=== PATIENT | male | born 1990 | race Caucasian/White ===

== ENCOUNTER 2021-10-20 10:26 | Emergency (ER) | payer MEDICAID ==
[~2021-10-20] VITALS: Ht 175.3 cm; Wt 86.7 kg
[2021-10-20 10:32] VITALS: BP 125/43
--- NOTE | 2021-10-20 10:37 | NUR ---
Ade luna in [facility] - 10/20/21 at 1040 by [email or web address] PT AMB TO BED 6.
--- NOTE | 2021-10-20 10:53 | NUR ---
PT AMBULATED TO BED 06.
[2021-10-20] MEDS ORDERED: LIDOCAINE MPF 1% 10 MG/ML VIAL INJ ONE (12:05)
--- NOTE | 2021-10-20 12:15 | NUR ---
PT STEPPED OUT "GOING TO MY CAR , WILL BE BACK"
--- NOTE | 2021-10-20 12:56 | NUR ---
PT BACK FROM EATTING IN HIS CAR.
--- NOTE | 2021-10-20 13:03 | NUR ---
GEOFF SANCHES AT BEDSIDE EVALUATING PATIENT
[2021-10-20] MEDS ORDERED: LIDOCAINE MPF 1% 5 ML ONE (13:14)
[2021-10-20] MEDS ORDERED: NAPR-54 PO (13:25)
[2021-10-20] MEDS ORDERED: BACI1PAC6 TP (13:25)
[2021-10-20] MEDS ORDERED: BACITRACIN OINT 500 UNITS/GM PKT TP ONE (13:25)
--- NOTE | 2021-10-20 14:38 | NUR ---
Patient discharged with v/s stable. Written and verbal after care instructions FOR [employer] given and explained. Patient alert, oriented and verbalized understanding of instructions. Ambulatory with steady gait. All questions addressed prior to discharge. ID band removed. Patient advised to follow up with PMD. Rx of BACITRACIN ZINC AND NAPROXEN given. Opportunity to ask questions provided and answered.
--- NOTE | 2021-10-20 14:44 | NUR ---
The patient's care was reviewed and supervised by ED Agency Nurse 7, RN, RN.
== END 2021-10-20 14:38 | disposition home or self-care (01) ==
LOC: MED 10:26
DX: L60.0 Ingrowing nail (principal); Z79.1 Long term (current) use of non-steroidal anti-inflammatories (NSAID); Z79.2 Long term (current) use of antibiotics
CPT/HCPCS: 11730; 99284; J2001

== ENCOUNTER 2023-02-07 17:24 | Emergency (ER) | payer MEDICAID, OTHER ==
[~2023-02-07 17:24] MED LIST: BACI-418 TP; NAPR-54 PO
== END 2023-02-07 17:45 | disposition left against medical advice (07) ==
LOC: MED 17:24
DX: R53.81 Other malaise (principal); Z53.21 Procedure and treatment not carried out due to patient leaving prior to being seen by health care provider

== ENCOUNTER 2023-11-01 08:37 | Emergency (ER) | payer OTHER ==
[~2023-11-01] VITALS: Ht 175.3 cm; Wt 102.5 kg
[~2023-11-01 08:37] MED LIST changes: +NAPR-337 PO; -NAPR-54 PO
[2023-11-01 08:54] VITALS: BP 126/86; PULSE 90; RESP 18; TEMP 98.4; O2SAT 97
[2023-11-01] MEDS: cephALEXin 500 MG CAP PO ONE (09:50)
[2023-11-01] MEDS ORDERED: CEPH-588 PO (10:07)
== END 2023-11-01 10:17 | disposition home or self-care (01) ==
LOC: MED 08:37
DX: L03.115 Cellulitis of right lower limb (principal); Z79.899 Other long term (current) drug therapy
CPT/HCPCS: 73630; 99283; Q0092